=== PATIENT | male | born 1975 | race Hispanic/Latino ===

== ENCOUNTER 2022-03-21 13:21 | Emergency (ER) | payer OTHER ==
[2022-03-21] MEDS ORDERED: Lidocaine 1% PF 5 ML VIAL ONE (13:45)
[2022-03-21] MEDS ORDERED: Boostrix 0.5 ML (Tdap) VIAL (>/=7 yrs of age) ONE (13:46)
== END 2022-03-21 15:27 | disposition home or self-care (01) ==
LOC: ERS 13:21
DX: S81.812A Laceration without foreign body, left lower leg, initial encounter (principal); W26.8XXA Contact with other sharp object(s), not elsewhere classified, initial encounter; Z23 Encounter for immunization
CPT/HCPCS: 90471; 90715